=== PATIENT | female | born 1995 | race Caucasian/White ===

== ENCOUNTER 2023-08-31 10:06 | Emergency (ER) | payer OTHER ==
[~2023-08-31] VITALS: Ht 160 cm; Wt 77.1 kg
[2023-08-31 10:23] VITALS: BP 133/60; PULSE 82; RESP 18; TEMP 97.9; O2SAT 100
[2023-08-31] MEDS ORDERED: DOXY100C5 PO (10:35)
== END 2023-08-31 10:44 | disposition home or self-care (01) ==
LOC: ER 10:06
DX: S50.812A Abrasion of left forearm, initial encounter (principal); W55.03XA Scratched by cat, initial encounter; Y93.89 Activity, other specified; Y92.098 Other place in other non-institutional residence as the place of occurrence of the external cause; Y99.0 Civilian activity done for income or pay
CPT/HCPCS: 99283

== ENCOUNTER 2023-11-06 12:22 | Emergency (ER) | payer OTHER, BC ==
[~2023-11-06] VITALS: Ht 160 cm; Wt 81.6 kg
[2023-11-06 12:22] VITALS: BP 124/84; PULSE 83; RESP 18; TEMP 98.4; O2SAT 99
[~2023-11-06 12:22] MED LIST: DOXY100C5 PO
[2023-11-06] MEDS ORDERED: BOOSTRIX IM ONE (12:41)
[2023-11-06] MEDS: BOOSTRIX IM ONE (12:45)
[2023-11-06 12:48] VITALS: BP 128/79; PULSE 76; RESP 18; TEMP 98.4; O2SAT 99
[2023-11-06] MEDS ORDERED: DOXY100T PO (12:55)
== END 2023-11-06 13:06 | disposition home or self-care (01) ==
LOC: ER 12:22
DX: S51.052A Open bite, left elbow, initial encounter (principal); Z98.51 Tubal ligation status; Z88.0 Allergy status to penicillin; W61.91XA Bitten by other birds, initial encounter; Y93.89 Activity, other specified; Y92.89 Other specified places as the place of occurrence of the external cause; Y99.8 Other external cause status
CPT/HCPCS: 90471; 90715; 99283

== ENCOUNTER 2023-12-07 17:05 | Emergency (ER) | payer BC, OTHER ==
[~2023-12-07] VITALS: Ht 160 cm; Wt 83.9 kg
[~2023-12-07 17:05] MED LIST changes: +DOXY100T PO
[2023-12-07 17:14] VITALS: BP 138/82; PULSE 86; RESP 18; TEMP 98.3; O2SAT 100
[2023-12-07 23:05] LABS: BILIRUBIN,URINE NEGATIVE (NEGATIVE); LEUKOCYTE ESTERASE ,URINE 1+ (NEGATIVE); NITRATE,URINE NEGATIVE (NEGATIVE); PH,URINE 5.5 (4.5-8.0); UROBILINOGEN,URINE 0.2 E.U./dL (0.2)
[2023-12-07 23:06] VITALS: BP 130/99; PULSE 88; RESP 18; TEMP 98.5
[2023-12-07 23:11] LABS: UA COLOR YELLOW
[2023-12-07 23:12] LABS: APPEARANCE,URINE TURBID
[2023-12-08 00:42] LABS: BASOPHIL % 0.2 % (0.1-1.2); EOSINOPHIL # 0.2 10^3/uL (0.0-0.2); EOSINOPHIL % 1.9 % (0.0-5.0); HEMATOCRIT(ML) 42.9 % (36.0-46.0); HEMOGLOBIN 14.6 g/dL (12.0-15.0); LYMPHOCYTES # 3.07 10^3/uL1 (1.0-4.8); MEAN CORP HGB 28.9 pg (26-34); MEAN CORP VOLUME 84.8 fL (78-100); MONOCYTES # 0.5 10^3/uL (0.3-0.8); MONOCYTES % 6.2 % (5.0-12.0); NEUTROPHIL # 4.9 10^3/uL (1.8-7.7); NEUTROPHILS % 56.5 % (41.0-85.0); PLATELET COUNT 255 10^3/uL (150-400); RED BLOOD CELL 5.06 10^6/uL (4.00-5.20); WHITE BLOOD CELL 8.8 10^3/uL (4.5-11.0)
[2023-12-08 00:45] LABS: +ADD MANUAL DIFF(NO CHRG) NO
[2023-12-08 00:52] LABS: ALBUMIN(ML) 4.3 g/dL (3.4-5.0); ALBUMIN/GLOBULIN RATIO 1.228; ANION GAP 15.9; BUN/CREATININE RATIO 10.11 (10.0-20.0); CALCIUM 8.8 mg/dL (8.4-10.5); CARBON DIOXIDE 25.5 mmol/L (20.0-32); CREATININE SERUM 0.89 mg/dL (0.59-1.40); POTASSIUM 3.4 mmol/L (3.6-5.2)
[2023-12-08 01:07] VITALS: BP 119/65; PULSE 79; RESP 18; TEMP 98.5
[2023-12-08] MEDS ORDERED: ROCEPHIN ONE (01:39)
[2023-12-08] MEDS: ROCEPHIN IM STA (01:47)
[2023-12-08 02:37] VITALS: BP 122/72; PULSE 72; RESP 18; TEMP 98.5; O2SAT 98
[2023-12-08] MEDS ORDERED: CEPH500C PO (03:05)
[2023-12-08 03:06] VITALS: BP 128/78; PULSE 78; RESP 18; TEMP 98.5; O2SAT 98
== END 2023-12-08 03:10 | disposition home or self-care (01) ==
LOC: ER 17:05
DX: O26.891 Other specified pregnancy related conditions, first trimester (principal); O23.40 Unspecified infection of urinary tract in pregnancy, unspecified trimester; O99.891 Other specified diseases and conditions complicating pregnancy; Z98.51 Tubal ligation status; Z88.0 Allergy status to penicillin; Z3A.00 Weeks of gestation of pregnancy not specified
CPT/HCPCS: 99284; 76801; 87086; 76817; 36415; 81001; 81025; 96372; 80053; 85025; 86900; 84702; J0696